=== PATIENT | female | born 1985 | race African-American/Black ===

== ENCOUNTER 2022-03-20 19:12 | Emergency (ER) | payer OTHER, SELFPAY ==
--- NOTE | ~2022-03-20 | XR_ITS ---
EXAM: XR ribs BI 3V w CXR 2V HISTORY: rib pain bilaterally, no trauma,PAIN X 14 YEARS,PAIN 1-3X YR COMPARISON: None available FINDINGS: Normal mineralization. No fracture or dislocation. No lytic or blastic lesion. Joint space s maintained. No erosion or periosteal change. Soft tissues within normal limits. IMPRESSION: No acute osseous finding. Reviewed, dictated and finalized at location K. IMPRESSION: No acute osseous finding.
[2022-03-20 19:34] VITALS: BP 128/86; PULSE 97; RESP 18; TEMP 36.1; O2SAT 100
--- NOTE | 2022-03-20 19:57 | ED.GENADULT ---
HPI - General Adult General Chief complaint: Unspecified Stated complaint: bilat rib pain/no injury Time Seen by Provider: 03/20/22 19:57 Source: patient Mode of arrival: ambulatory Limitations: no limitations History of Present Illness HPI narrative: The patient is a 36-year-old female presenting to the emergency department for evaluation of rib pain in the bilateral lower ribs as well as rash under her breasts. Patient reports she has had intermittent bilateral rib pain over the past several months. Patient denies recent fall or trauma. She denies any shortness of breath or frontal chest pain. Patient states that the ribs ache, and points to the lower ribs as the location of the pain. She denies chest pain or palpitations. No cough or hemoptysis. Patient also reports itching rash underneath her breast. Patient states she usually is able to treat this with Vaseline but does not report any significant improvement with that. Patient denies any bleeding, excoriations, or blisters. No vesicular lesions. Patient denies fever, chills, jaw pain, neck pain. She denies leg swelling or calf pain. She does not take any oral contraceptives. She does not smoke. Denies any recent new soaps, lotions or detergents. Related Data Allergies Allergy/AdvReac Type Severity Reaction Status Date / Time No Known Allergies Allergy Verified 03/20/22 19:38 Review of Systems Review of Systems: CONSTITUTIONAL: Denies fever, chills, or sweats. EYES: Denies visual changes, redness, or discharge. ENT: Denies rhinorrhea, congestion, sore throat, or otalgia. CARDIOVASCULAR: Reports bilateral lower rib pain RESPIRATORY: Denies cough or dyspnea. GASTROINTESTINAL: Denies abdominal pain, nausea, vomiting, or diarrhea. GENITOURINARY: Denies dysuria or hematuria. SKIN: Reports rash and itching beneath the breast, denies redness, blisters MUSCULOSKELETAL: Denies back pain, joint pain, or myalgia. NEUROLOGIC: Denies headache, numbness, or weakness. [facility] Social History Social History (Updated 03/20/22 @ 20:32 by Bridgette Skaggs MD) Smoking status: Never smoker Alcohol intake: never Substance use: never Gender identity (if verbalized by the patient): Female Exam Narrative: GENERAL: Awake, alert, conversant HEAD: Normocephalic, atraumatic. EYES: PERRLA and EOMI. ENT: Nares clear, no rhinorrhea or epistaxis. Mucous membranes moist. NECK: Supple. CHEST: No respiratory distress, breathing even and non labored HEART: Regular rate, sinus rhythm ABDOMEN:Non distended, non tender EXTREMITIES: Normal range of motion. No edema. SKIN: Warm, dry, there is bilateral erythema underneath the breasts, with slight scaling. No vesicles. No urticaria. No ecchymoses. No satellite lesions. NEURO:No focal deficits. Alert and oriented x3 Course Vital Signs Vital signs: Vital Signs Temperature 36.1 C L 03/20/22 19:34 Pulse Rate 97 03/20/22 19:34 Respiratory Rate 18 03/20/22 19:34 Blood Pressure 128/86 03/20/22 19:34 Pulse Oximetry 100 03/20/22 19:34 Temperature 36.1 C L 03/20/22 19:34 Pulse Rate 97 03/20/22 19:34 Respiratory Rate 18 03/20/22 19:34 Blood Pressure 128/86 03/20/22 19:34 Pulse Oximetry 100 03/20/22 19:34 Medical Decision Making MDM Narrative Medical decision making narrative: Patient presenting for evaluation of bilateral rib pain, rash underneath her breasts. On exam, does not seem consistent with tinea versicolor. There is no urticaria, vesicles or plaques. You be consistent with heat rash, I do not feel that this is consistent with Imani does not require any antifungal. Patient was given Benadryl, steroids in the ER. Patient's EKG and labs are without significant high risk changes. Cardiac risk factors reviewed. Patient is felt low risk for ACS and reasonable for further risk stratification testing as an outpatient. Pain was not sudden or maximal or onset without tearing or ripping quality. No other si
--- NOTE | 2022-03-20 20:28 | ECG_ITS ---
Measurements Intervals [place] Rate: 69 P: 61 DE: 204 QRS: 37 QRSD: 78 T: 18 QT: 369 QTc: 397 Interpretive Statements SINUS RHYTHM NORMAL ECG Electronically Signed On 03-21-2022 6:35:05 CDT by Robert Crow D.O.
[2022-03-20] MEDS: diphenhydrAMINE HCl CAP 25 MG CAPSULE PO (20:53)
[2022-03-20] MEDS: KETOROLAC 30 MG/ML VIAL (*BKC) IV PUSH (20:53)
[2022-03-20 21:02] LABS: Basophils Percent Auto 0.3 % (0.2-1.2); Eosinophils Absolute Auto 0.4 K/mm3 (0-0.3); Eosinophils Percent Auto 4.4 % (0-4.4); Hematocrit 32.3 % (37.0-47.0); Hemoglobin 10.9 g/dL (12.0-15.0); Immature Granulocyte Absolute 0.02 K/mm3 (0.00-0.031); Immature Granulocyte Percent A 0.2 % (0-0.5); Lymphocytes Absolute Auto 2.47 K/mm3 (0.9-3.2); Lymphocytes Percent Auto 25.6 % (18.3-44.2); Mean Corpuscular HGB Conc 33.7 g/dl (32-36); Mean Corpuscular Hemoglobin 27.5 pg (26-34); Mean Corpuscular Volume 81.4 fl (80-100); Mean Platelet Volume 9.3 fl (7.4-10.4); Monocytes Absolute Auto 0.8 K/mm3 (0.1-0.6); Monocytes Percent Auto 7.9 % (2.6-8.5); Neutrophils Percent Auto 61.6 % (45.5-73.1); Platelet Count Result 297 k/mm3 (150-375); Red Blood Count 3.97 M/mm3 (4.2-5.4); Red Cell Distribution Width 15.6 % (11.5-14.5); White Blood Count 9.7 K/mm3 (4.5-10.0)
[2022-03-20 21:12] LABS: Alanine Aminotransferase 19 U/L (6-35); Alkaline Phosphatase 87 U/L (38-126); Anion Gap 4 mmol/L (8-16); Aspartate Amino Transferase 24 U/L (14-36); Bilirubin,Total 0.3 mg/dL (0.2-1.3); Blood Urea Nitrogen 9 mg/dL (7-17); Calcium 8.5 mg/dL (8.4-10.2); Carbon Dioxide 30 mmol/L (22-30); Chloride 104 mmol/L (98-107); Estimated CRCL calculation 89 ml/min; Estimated Glomerular Filt Rate > 60; Glucose 73 mg/dL (65-110); Lipase 155 U/L (23-300); Potassium 3.9 mmol/L (3.4-5.0); Sodium 138 mmol/L (137-145)
[2022-03-20 21:23] LABS: Troponin I < 0.012 ng/mL (0.000-0.034)
[2022-03-20 21:53] VITALS: BP 128/74; PULSE 80; RESP 18; O2SAT 98
== END 2022-03-20 21:54 | disposition home or self-care (01) ==
PROVIDERS: Emergency Provider Emergency Medicine
DX: R07.81 Pleurodynia (principal); L29.9 Pruritus, unspecified
CPT/HCPCS: 36415; 71046; 71110; 80053; 83690; 84484; 85025; 93005; 96374; 99284; A9270; J1100; J1885

== ENCOUNTER 2022-04-19 20:31 | Emergency (ER) | payer OTHER, SELFPAY ==
--- NOTE | ~2022-04-19 | CT_ITS ---
EXAMINATION: CT abdomen pelvis wo con DATE: 04/19/2022 23:06 INDICATION: Lower abdominal pain. Pain during urination. TECHNIQUE: Computed tomography (CT) of the abdomen and pelvis was performed without intravenous contr ast. The dose-length product was 903.27 mGy-cm. Automated exposure control and iterative reconstructi on technique were employed. COMPARISON: None. FINDINGS: Lung bases are unremarkable. Heart size is normal. No significant pleural or pericardial ef fusion. No significant vascular abnormality. No lymphadenopathy. Trace free fluid in the pelvis, like ly physiologic. The liver, spleen, pancreas, adrenal glands and kidneys are unremarkable. Bladder is not well distend ed, although unremarkable. Normal appendix. Status post tubal ligation. Small fat-containing umbilica l hernia. Small hiatal hernia. IMPRESSION: 1. No acute abdominal abnormality. Reviewed, dictated and finalized at location A.
[2022-04-19 20:43] VITALS: BP 145/79; PULSE 90; RESP 17; TEMP 36.2; O2SAT 100
[2022-04-19 20:55] LABS: Basophils Percent Auto 0.3 % (0.2-1.2); Eosinophils Absolute Auto 0.3 K/mm3 (0-0.3); Eosinophils Percent Auto 3.3 % (0-4.4); Hematocrit 35.8 % (37.0-47.0); Hemoglobin 12.3 g/dL (12.0-15.0); Immature Granulocyte Absolute 0.01 K/mm3 (0.00-0.031); Immature Granulocyte Percent A 0.1 % (0-0.5); Lymphocytes Absolute Auto 2.37 K/mm3 (0.9-3.2); Lymphocytes Percent Auto 25.2 % (18.3-44.2); Mean Corpuscular HGB Conc 34.4 g/dl (32-36); Mean Corpuscular Hemoglobin 27.4 pg (26-34); Mean Corpuscular Volume 79.7 fl (80-100); Mean Platelet Volume 9.3 fl (7.4-10.4); Monocytes Absolute Auto 0.6 K/mm3 (0.1-0.6); Monocytes Percent Auto 6.7 % (2.6-8.5); Neutrophils Absolute Auto 6.1 K/mm3 (1.3-6.7); Neutrophils Percent Auto 64.4 % (45.5-73.1); Platelet Count Result 340 k/mm3 (150-375); Red Blood Count 4.49 M/mm3 (4.2-5.4); Red Cell Distribution Width 14.8 % (11.5-14.5); White Blood Count 9.4 K/mm3 (4.5-10.0)
[2022-04-19 21:04] LABS: Alanine Aminotransferase 14 U/L (6-35); Albumin Level 4.1 g/dL (3.5-5.1); Alkaline Phosphatase 93 U/L (38-126); Anion Gap 3 mmol/L (8-16); Aspartate Amino Transferase 23 U/L (14-36); Bilirubin,Total 0.6 mg/dL (0.2-1.3); Blood Urea Nitrogen 8 mg/dL (7-17); Calcium 8.8 mg/dL (8.4-10.2); Carbon Dioxide 28 mmol/L (22-30); Chloride 108 mmol/L (98-107); Estimated Glomerular Filt Rate > 60; Glucose 109 mg/dL (65-110); Lipase 123 U/L (23-300); Potassium 3.6 mmol/L (3.4-5.0); Sodium 139 mmol/L (137-145)
[2022-04-19 21:43] LABS: Appearance Urine Slightly Cloudy (Clear); Bilirubin Urine 1+ (Negative); Blood Urine Negative (Negative); Color Urine Yellow (Yellow); Glucose Urine UA Negative (Negative); Ketones Urine 1+ mg/dL (Negative); Leukocyte Esterase Ur Negative LEU/UL (Negative); Nitrate Urine Negative (Negative); Protein Urine Negative (Negative); Specific Grav Ur 1.025 (1.001-1.035)
[2022-04-19 21:48] LABS: Bacteria Urine Trace /hpf; Mucus Urine Heavy /lpf; RBC Urine 0-2 /hpf (0-2); Squamous Epithelial Cell Urine Many /hpf (Few)
[2022-04-19 21:49] LABS: Add Urine Microscopic? YES
[2022-04-19 22:48] VITALS: BP 116/75; PULSE 83; RESP 20; O2SAT 100
--- NOTE | 2022-04-19 22:54 | ED.ABDPAIN ---
HPI - Abdominal Pain General Chief Complaint: Abdominal Pain Stated Complaint: abdominal pain, legs pain Time Seen by Provider: 04/19/22 22:17 History of Present Illness HPI narrative: 36-year-old female presented to the emergency room complaints of lower abdominal/pelvic pain radiates into her legs started earlier today. Patient states that her significant other was just diagnosed with nongonococcal urethritis and was treated with antibiotics. Patient states that moving around and touching her abdomen aggravate the pain. Patient denies any dysuria, vaginal discharge, or vaginal bleeding. Denies fever. Denies nausea, vomiting, diarrhea, constipation. Related Data Allergies Allergy/AdvReac Type Severity Reaction Status Date / Time No Known Allergies Allergy Verified 04/19/22 20:46 Review of Systems Review of Systems: CONSTITUTIONAL: Denies fever, chills, or sweats. EYES: Denies visual changes, redness, or discharge. ENT: Denies rhinorrhea, congestion, sore throat, or otalgia. CARDIOVASCULAR: Denies chest pain, palpitations, or edema. RESPIRATORY: Denies cough or dyspnea. GASTROINTESTINAL: Reports lower abdominal pain GENITOURINARY: Denies dysuria or hematuria. SKIN: Denies rash or itching. MUSCULOSKELETAL: Denies back pain, joint pain, or myalgia. NEUROLOGIC: Denies headache, numbness, dizziness, or weakness. PSYCHIATRIC: Denies anxiety or depression. [facility] Past Medical History Medical History (Updated 04/20/22 @ 01:42 by Chevy Rodriguez, LOGISTICS ANALYTICS MANAGER) Bipolar 1 disorder Social History Social History (Updated 03/20/22 @ 20:32 by Bridgette Skaggs MD) Smoking status: Never smoker Alcohol intake: never Substance use: never Gender identity (if verbalized by the patient): Female Exam Narrative: GENERAL: Well-appearing, well-nourished, and in no acute distress. HEAD: Normocephalic, atraumatic. EYES: PERRLA and EOMI. CHEST: Clear to auscultation. No respiratory distress. No wheezes rales or rhonchi HEART: Regular rate and rhythm. No murmur heard. Normal peripheral pulses. ABDOMEN: Soft, lower abdominal tenderness, nondistended, normal active bowel sounds. : Moderate amount of yellow-clear vaginal discharge; no observable lesions or masses to the external genitalia, cervical os is closed, no cervical motion tenderness EXTREMITIES: Normal range of motion. No edema. SKIN: Warm, dry, no rash. NEURO: No focal deficits. Alert and oriented x3. PSYCH: Normal mood and affect. Course Vital Signs Vital signs: Vital Signs Temperature 36.2 C L 04/19/22 20:43 Pulse Rate 90 04/19/22 20:43 Respiratory Rate 17 04/19/22 20:43 Blood Pressure 145/79 H 04/19/22 20:43 Pulse Oximetry 100 04/19/22 20:43 Oxygen Delivery Room Air 04/19/22 20:43 Temperature 36.2 C L 04/19/22 20:43 Pulse Rate 83 04/19/22 22:48 Respiratory Rate 20 04/19/22 22:48 Blood Pressure 116/75 04/19/22 22:48 Pulse Oximetry 100 04/19/22 22:48 Oxygen Delivery Room Air 04/19/22 20:43 MDM - Abdominal Pain MDM Narrative Medical decision making narrative: 36-year-old female presented the emergency room plaints of lower abdominal/pelvic pain. Abdominal exam is without peritoneal signs. No evidence of an acute abdomen at this time patient is well-appearing pelvic exam was done with no CMT, adnexal tenderness. There was some whitish-yellowish vaginal discharge. CT scan shows no acute intra-abdominal abnormalities. Given the patient's history, and per nurse recent treatment for nongonococcal urethritis, will treat the patient for same. Lab Data Attestation: I reviewed the patient's lab results. Result diagrams: 04/19/22 20:49 04/19/22 20:49 Labs: Lab Results 04/19/22 04/19/22 04/19/22 Range/Units 20:49 20:49 21:36 WBC 9.4 (4.5-10.0) K/mm3 RBC 4.49 (4.2-5.4) M/mm3 Hgb 12.3 (12.0-15.0) g/dL Hct 35.8 L (37.0-47.0) % MCV 79.7 L (80-100) fl MCH 27.4 (26-34)
--- NOTE | 2022-04-19 23:11 | PC.NURSE ---
Talked to Emelia in lab at 23:10 to add on Ur HCG Qual
[2022-04-19] MEDS: fentaNYL CITRATE INJ (*CRX) 100 MCG/2 ML VIAL 25 MCG IV PUSH (23:21)
[2022-04-19] MEDS: SODIUM CHLORIDE 0.9% IV 1,000 ML 999 ML IV CONT (23:21)
[2022-04-19 23:22] VITALS: BP 125/82; PULSE 76; RESP 20; O2SAT 100
[2022-04-19 23:28] LABS: Pregnancy On Board Control Positive; Urine Pregnancy Test Negative
[2022-04-19 23:31] VITALS: BP 131/72; PULSE 82; RESP 17; O2SAT 99
[2022-04-20 01:01] VITALS: BP 127/79; PULSE 81; RESP 20; O2SAT 100
[2022-04-20 01:17] VITALS: BP 122/77; PULSE 90; RESP 19; O2SAT 100
[2022-04-20 01:31] VITALS: BP 129/82; PULSE 113; RESP 19; O2SAT 100
[2022-04-20 02:01] VITALS: BP 121/78; PULSE 84; RESP 19; O2SAT 99
== END 2022-04-20 02:10 | disposition home or self-care (01) ==
PROVIDERS: Emergency Medicine; Emergency Provider Nurse Practitioner Family
DX: R10.2 Pelvic and perineal pain (principal); N89.8 Other specified noninflammatory disorders of vagina
CPT/HCPCS: 36415; 74176; 80053; 81001; 81025; 83690; 85025; 87491; 87591; 87661; 87808; 96361; 96365; 96374; 99284; J0696; J3010; J7030

== ENCOUNTER 2022-05-21 07:09 | Emergency (ER) | payer OTHER, SELFPAY ==
[2022-05-21 07:14] VITALS: BP 141/100; PULSE 116; RESP 18; TEMP 36.6; O2SAT 99
[2022-05-21 07:38] VITALS: BP 112/76
--- NOTE | 2022-05-21 07:47 | ED.ANXIETY ---
HPI - Anxiety General Chief Complaint: Psychiatric Symptoms Stated Complaint: anxiety, med refill Time Seen by Provider: 05/21/22 07:21 History of Present Illness HPI narrative: 36-year-old female presents emergency room secondary anxiety and depression. She states she is had this for quite some time but is gotten worse lately. She states I just need someone to talk to . Patient has 3 children and is in a relationship and not . Apparently there is a lot of stress going on in the relationship at this time. She states she just been feeling more more anxious. She been on medications for depression anxiety. She did not talk to her physician in quite some time. She states she has been taking her medication as prescribed. When asked if she is having suicidal thoughts she said yes. She states she is having thoughts of stabbing herself. She is not sure that she will act on it but she is concerned about her own safety at this point. Related Data Home Medications Medication Instructions Recorded Confirmed oxcarbazepine 150 mg tablet 1 tablet 05/21/22 quetiapine 50 mg tablet 1 tablet 05/21/22 Allergies Allergy/AdvReac Type Severity Reaction Status Date / Time No Known Allergies Allergy Verified 05/21/22 07:17 Review of Systems Review of Systems: CONSTITUTIONAL: Denies fever, chills, or sweats. EYES: Denies visual changes, redness, or discharge. ENT: Denies rhinorrhea, congestion, sore throat, or otalgia. CARDIOVASCULAR: Denies chest pain, palpitations, or edema. RESPIRATORY: Denies cough or dyspnea. GASTROINTESTINAL: Denies abdominal pain, nausea, vomiting, or diarrhea. GENITOURINARY: Denies dysuria or hematuria. SKIN: Denies rash or itching. MUSCULOSKELETAL: Denies back pain, joint pain, or myalgia. NEUROLOGIC: Denies headache, numbness, or weakness. PSYCHIATRIC: Anxiety and depression [facility] Past Medical History Medical History Bipolar 1 disorder Social History Social History Smoking status: Never smoker Alcohol intake: never Substance use: never Living arrangements: with family Additional living arrangements comments: She has 3 children Gender identity (if verbalized by the patient): Female Exam Narrative: APPEARANCE: Well appearing, no pain or distress, well-nourished. Head normocephalic and atraumatic. EYES: PERRLA/EOMI, conjunctivae very clear. NOSE: Normal with no drainage EARS:TMS clear Saira Dominguez, with good light reflex. THROAT: Pharynx clear, no exudate. NECK: Supple. No adenopathy, no masses. RESPIRATORY: Airway patent, respirations nonlabored. Clear to auscultation bilaterally, no rales, rhonchi, wheezing. CARDIOVASCULAR: Regular rate and rhythm without murmurs, rubs, or gallops. ABDOMINAL: Soft, nontender, nondistended, no hepatosplenomegaly Musculoskeletal: Moves all extremities. Strength/ROM intact, No edema, No calf tenderness. NEURO: Alert. Cranial nerves II through XII intact. Normal gait. Good coordination. Nonfocal examination. SKIN:: Warm, dry. Normal Color PSYCHIATRIC: Flat affect and very soft-spoken Course Vital Signs Vital signs: Vital Signs Temperature 97.9 F 05/21/22 07:14 Pulse Rate 116 H 05/21/22 07:14 Respiratory Rate 18 05/21/22 07:14 Blood Pressure 141/100 H 05/21/22 07:14 Pulse Oximetry 99 05/21/22 07:14 Oxygen Delivery Room Air 05/21/22 07:14 Temperature 97.9 F 05/21/22 07:14 Pulse Rate 116 H 05/21/22 07:14 Respiratory Rate 18 05/21/22 07:14 Blood Pressure 112/76 05/21/22 07:38 Pulse Oximetry 99 05/21/22 07:14 Oxygen Delivery Room Air 05/21/22 07:14 MDM - Anxiety MDM Narrative Medical decision making narrative: 08 patient is now having auditory hallucinations. She is noted to be talking to someone does not in the room. She told the nurses that these voices are telling her to take her medication
--- NOTE | 2022-05-21 08:00 | PC.NURSE ---
Pt is at low risk for si. Per Dr. Alicea, pt does not need a sitter and can keep her belongings.
[2022-05-21 08:05] LABS: Add Urine Microscopic? NO; Appearance Urine Clear (Clear); Bilirubin Urine Negative (Negative); Blood Urine Negative (Negative); Color Urine Yellow (Yellow); Glucose Urine UA Negative (Negative); Ketones Urine Negative (Negative); Leukocyte Esterase Ur Negative LEU/UL (Negative); Nitrate Urine Negative (Negative); Protein Urine Negative (Negative); Specific Grav Ur 1.015 (1.001-1.035); Urobilinogen Urine 0.2 mg/dL (<2.0)
[2022-05-21 08:05] LABS: Basophils Percent Auto 0.2 % (0.2-1.2); Eosinophils Absolute Auto 0.1 K/mm3 (0-0.3); Eosinophils Percent Auto 0.7 % (0-4.4); Hematocrit 34.3 % (37.0-47.0); Hemoglobin 11.9 g/dL (12.0-15.0); Immature Granulocyte Absolute 0.03 K/mm3 (0.00-0.031); Immature Granulocyte Percent A 0.4 % (0-0.5); Lymphocytes Absolute Auto 0.67 K/mm3 (0.9-3.2); Lymphocytes Percent Auto 8.3 % (18.3-44.2); Mean Corpuscular HGB Conc 34.7 g/dl (32-36); Mean Corpuscular Hemoglobin 27.5 pg (26-34); Mean Corpuscular Volume 79.2 fl (80-100); Mean Platelet Volume 9.9 fl (7.4-10.4); Monocytes Absolute Auto 0.4 K/mm3 (0.1-0.6); Neutrophils Absolute Auto 6.9 K/mm3 (1.3-6.7); Neutrophils Percent Auto 85.4 % (45.5-73.1); Platelet Count Result 290 k/mm3 (150-375); Red Blood Count 4.33 M/mm3 (4.2-5.4); Red Cell Distribution Width 14.4 % (11.5-14.5); White Blood Count 8.1 K/mm3 (4.5-10.0)
--- NOTE | 2022-05-21 08:13 | PC.NURSE ---
Pt speaking to herself. Md informed. No further orders. Will continue to monitor.
[2022-05-21 08:15] LABS: Alanine Aminotransferase 12 U/L (6-35); Albumin Level 4.3 g/dL (3.5-5.1); Alkaline Phosphatase 91 U/L (38-126); Anion Gap 8 mmol/L (8-16); Aspartate Amino Transferase 19 U/L (14-36); Bilirubin,Total 0.7 mg/dL (0.2-1.3); Blood Urea Nitrogen 6 mg/dL (7-17); Calcium 8.8 mg/dL (8.4-10.2); Carbon Dioxide 22 mmol/L (22-30); Chloride 107 mmol/L (98-107); Estimated CRCL calculation 107 ml/min; Estimated Glomerular Filt Rate > 60; Glucose 112 mg/dL (65-110); Potassium 3.4 mmol/L (3.4-5.0); Sodium 137 mmol/L (137-145)
[2022-05-21 08:16] LABS: Acetaminophen < 10 ug/mL (10-30); Ethanol < 10 mg/dL (<10); Salicylate < 1.0 mg/dL (2-20)
[2022-05-21 08:28] LABS: Amphetamine Screen Urine Negative (Negative); Barbiturate Screen Urine Negative (Negative); Benzodiazepines Screen Urine Negative (Negative); Cannabinoid Screen Urine Negative (Negative); Cocaine Screen Urine Negative (Negative); Methadone Screen Urine Negative (Negative); Opiate Screen Urine Negative (Negative); Phencyclidine Screen Urine Negative (Negative)
--- NOTE | 2022-05-21 08:30 | PC.NURSE ---
[employer] notified of Clear and Present Danger at this time.
--- NOTE | 2022-05-21 08:37 | PC.NURSE ---
Went to swab pt for COVID, she was in the restroom. When she exited, a pill bottle fell on the floor. When questioned about it, she acknowledged they were her meds and that she had another bottle of pills she had not reported. They were quetiapine and oxycarbazpine. Both bottles were prescribed to her and were entered into the med rec. She stated that she had taken one of her quetiapine because she can't just go to sleep and he wants her to . I asked who he was. She stated that he was a voice. She does not see him, she just hears him. He is telling her to kill herself. Dr. Alicea informed of all of the previously described events. Suicide precautions ordered. Room made safe. Pt in suicide safe scrubs. Sitter is in room monitoring patient.
[2022-05-21 09:14] LABS: SARS-CoV-2 RNA PCR Negative
--- NOTE | 2022-05-21 10:50 | PC.NURSE ---
Crisis staff at bedside for assessment, faxing paperwork to multiple facilities at this time for voluntary placement.
--- NOTE | 2022-05-21 12:28 | ECG_ITS ---
Measurements Intervals [employer] Rate: 68 P: 50 CA: 183 QRS: 46 QRSD: 90 T: 21 QT: 371 QTc: 396 Interpretive Statements SINUS RHYTHM BASELINE ARTIFACT- I, III, AVL NORMAL ECG Electronically Signed On 05-21-2022 13:00:08 CDT by Robert Crow D.O.
--- NOTE | 2022-05-21 12:28 | PC.NURSE ---
ekg required for admission to [facility]. fax # [phone] attn terrie
--- NOTE | 2022-05-21 12:45 | PC.NURSE ---
EKG FAXED TO [facility] AT THIS TIME.
--- NOTE | 2022-05-21 15:25 | PC.NURSE ---
[facility] updated with ekg result. awaiting a call back.
[2022-05-21 17:43] VITALS: BP 131/90; PULSE 90; RESP 16; O2SAT 99
== END 2022-05-21 19:23 ==
PROVIDERS: Emergency Provider Emergency Medicine
DX: F32.9 Major depressive disorder, single episode, unspecified (principal); R45.851 Suicidal ideations; R44.0 Auditory hallucinations; Z20.822 Contact with and (suspected) exposure to COVID-19
CPT/HCPCS: 36415; 80053; 80307; 81003; 81025; 84443; 85025; 93005; 99285; C9803; U0003; U0005

== ENCOUNTER 2022-06-29 09:49 | Emergency (ER) | payer OTHER, SELFPAY ==
[2022-06-29 09:52] VITALS: BP 156/99; PULSE 106; RESP 18; TEMP 36.7; O2SAT 98
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
[2022-06-29] MEDS: KETOROLAC 30 MG/ML VIAL (*BKC) IM (10:54)
[2022-06-29 11:08] VITALS: BP 145/90; PULSE 89; RESP 18; O2SAT 98
== END 2022-06-29 11:11 | disposition home or self-care (01) ==
LOC: ANHED 10:32
PROVIDERS: Emergency Provider Emergency Medicine; PCP Family Medicine
DX: S13.4XXA Sprain of ligaments of cervical spine, initial encounter (principal); V49.40XA Driver injured in collision with unspecified motor vehicles in traffic accident, initial encounter; F31.9 Bipolar disorder, unspecified
CPT/HCPCS: 96372; 99283; J1885